=== PATIENT | female | born 1955 | race Caucasian/White ===

== ENCOUNTER 2022-03-24 14:20 | Emergency (ER) | payer OTHER ==
[~2022-03-24] VITALS: Ht 165.1 cm; Wt 93.2 kg
[~2022-03-24 14:20] MED LIST: ACET-8386 PO; DILT120C95 PO; FURO-572 PO; LEVO500T6 PO; METO25TA PO; PANT40EC PO; RIVA20TA PO; ROB PO
[2022-03-24 14:35] VITALS: BP 147/67
[2022-03-24] MEDS ORDERED: CLIN300C2 PO (15:33)
[2022-03-24] MEDS ORDERED: ACET-8386 PO (15:35)
--- NOTE | 2022-03-24 15:43 | NUR ---
LEFT WITHOUT DISCHARGE PAPERS, MADE AWARE
== END 2022-03-24 15:43 | disposition home or self-care (01) ==
LOC: MED 14:20
DX: K11.23 Chronic sialoadenitis (principal); I10 Essential (primary) hypertension; I48.91 Unspecified atrial fibrillation; J44.9 Chronic obstructive pulmonary disease, unspecified; Z88.5 Allergy status to narcotic agent; Z79.899 Other long term (current) drug therapy
CPT/HCPCS: 99283

== ENCOUNTER 2023-06-06 10:06 | Inpatient (IN) | payer OTHER ==
[~2023-06-06] VITALS: Ht 162.6 cm; Wt 123.4 kg
[~2023-06-06 10:06] MED LIST changes: -ACET-8386 PO; +ACET-8905 PO; +CLIN300C2 PO
[2023-06-06 10:16] VITALS: BP 117/99; PULSE 132; RESP 28; TEMP 98; O2SAT 98
[2023-06-06] MEDS ORDERED: ALBUTEROL SULFATE/IPRATROPIU 3 ML SOL IH ONE ×2 (10:20→11:25)
[2023-06-06] MEDS ORDERED: DILTIAZEM 25 MG/5 ML VIAL IVP ONE ×2 (10:20→11:30)
[2023-06-06 10:22] VITALS: PULSE 152; RESP 18; O2SAT 98
[2023-06-06 10:47] LABS: BASOPHILS % (AUTO) 0.4 % (0.0-2.0); EOSINOPHILS # (AUTO) 0.1 K/uL (0-0.4); EOSINOPHILS % (AUTO) 1.2 % (0.0-4.0); HEMATOCRIT 39.7 % (36-48); HEMOGLOBIN 13.3 g/dL (12.0-16.0); LYMPHOCYTES # (AUTO) 1.6 K/uL (2.5-16.5); MEAN CORPUSCULAR HEMOGLOBIN 29 pg (27-31); MEAN CORPUSCULAR HGB CONC 34 g/dL (33-37); MEAN CORPUSCULAR VOLUME 86.4 fL (80-94); MONOCYTES # (AUTO) 0.8 K/uL (0.8-1.0); NEUTROPHILS # (AUTO) 6.8 K/uL (1.8-7.7); NEUTROPHILS % (AUTO) 72.4 % (42.2-75.2); PLATELET COUNT (AUTO) 193 K/uL (140-450); RED BLOOD CELL COUNT(AUTO) 4.59 MIL/uL (4.20-5.40); RED CELL DISTRIBUTION WIDTH 13.7 % (11.6-13.7); WHITE BLOOD COUNT (AUTO) 9.3 K/uL (4.8-10.8)
[2023-06-06 11:01] LABS: ALBUMIN 3.4 g/dL (3.4-5.0); ANION GAP 13.3 (8-16); CALCIUM 8.9 mg/dL (8.5-10.1); CARBON DIOXIDE 28.4 mmol/L (21-32); POTASSIUM 3.7 mmol/L (3.5-5.1); TOTAL BILIRUBIN 0.6 mg/dL (0.0-1.0); TOTAL PROTEIN, SERUM 6.7 g/dL (6.4-8.2)
[2023-06-06] MEDS ORDERED: AZITHROMYCIN 1,000 MG in DEXTROSE 5% 500 ML IV ONE (11:25)
[2023-06-06] MEDS ORDERED: methylPREDNISolone SS 125 MG/2 ML VIAL IVP ONE (11:25)
[2023-06-06] MEDS ORDERED: cefTRIAXone 1,000 MG VIAL ONE (11:32)
[2023-06-06 11:34] LABS: MAGNESIUM 1.9 mg/dL (1.8-2.4); THYROID STIMULATING HORMONE 0.82 uIU/mL (0.34-3.74)
[2023-06-06 11:37] VITALS: PULSE 104; RESP 13; O2SAT 96
[2023-06-06] MEDS ORDERED: RIVA20TA PO (13:37)
[2023-06-06] MEDS ORDERED: FURO-570 PO (13:37)
[2023-06-06] MEDS ORDERED: DILT-135 (13:37)
[2023-06-06] MEDS ORDERED: CARV3.12 PO (13:37)
[2023-06-06] MEDS ORDERED: ATOR20TA PO (13:37)
[2023-06-06] MEDS ORDERED: LISI40TA12 PO (13:37)
[2023-06-06] MEDS ORDERED: PANT40EC56 PO (13:37)
[2023-06-06] MEDS ORDERED: POTASSIUM CHLORIDE 10 MEQ TABER PO PRN (14:45)
[2023-06-06] MEDS ORDERED: DOCUSATE SODIUM 100 MG GELCAP PO PRN (14:45)
[2023-06-06] MEDS ORDERED: ONDANSETRON 4 MG/2 ML VIAL IM/IVP PRN (14:45)
[2023-06-06] MEDS ORDERED: guaiFENesin DM 200/20 MG-10 ML 10 ML UDC PO PRN (14:45)
[2023-06-06] MEDS ORDERED: ALBUTEROL SULFATE/IPRATROPIU 3 ML SOL IH PRN (14:50)
[2023-06-06] MEDS ORDERED: DIGOXIN 0.25 MG/ML AMP IV SCH ×2 (16:17→22:00)
[2023-06-06 16:41] LABS: INR 0.96 (0.8-1.2); PROTHROMBIN TIME 10.1 secs (10.8-13.4)
[2023-06-06 16:42] LABS: PARTIAL THROMBOPLASTIN TIME 32.3 secs (22-35.6)
[2023-06-06 16:49] LABS: CHOL/HDL RATIO 2.2 (1-4.5); FREE T4 (FREE THYROXINE) 1.1 ng/dL (0.76-1.46); PHOSPHORUS 3.5 mg/dL (2.5-4.9)
[2023-06-06 17:03] VITALS: RESP 22; O2SAT 98
[2023-06-06] MEDS: FUROSEMIDE 40 MG/4 ML VIAL IVP SCH (17:32)
[2023-06-06 18:52] VITALS: PULSE 139; RESP 18; O2SAT 93
[2023-06-06] MEDS: ALBUTEROL SULFATE/IPRATROPIU 3 ML SOL IH SCH (18:52)
[2023-06-06 20:00] VITALS: BP 136/78; PULSE 137; RESP 18; TEMP 97.1; O2SAT 98
[2023-06-06] MEDS: DILTIAZEM 60 MG TAB PO SCH (20:13)
[2023-06-06] MEDS: ACETAMINOPHEN 325 MG TAB PO PRN (20:14)
[2023-06-06] MEDS: RIVAROXABAN 10 MG TAB PO SCH (20:19)
[2023-06-06] MEDS ORDERED: carvediloL 3.125 MG TAB PO SCH (21:00)
[2023-06-06] MEDS ORDERED: DILTIAZEM 120 MG CAPER PO SCH (21:00)
[2023-06-06] MEDS: HYDROcodone/APAP 7.5/325 MG 1 TAB PO PRN (21:19)
[2023-06-06] MEDS: ZOLPIDEM 5 MG TAB PO PRN (23:46)
[2023-06-07] VITALS (12 sets, daily range): BP systolic 119–140; BP diastolic 62–80; PULSE 74–133; RESP 16–22; TEMP 96.6–98.2; O2SAT 90–99
[2023-06-07] MEDS ORDERED: DIGOXIN 0.25 MG/ML AMP IV SCH (04:00)
[2023-06-07] MEDS: DILTIAZEM 60 MG TAB PO SCH ×3 (04:21→20:27)
[2023-06-07 06:50] LABS: ANION GAP 12.5 (8-16); CALCIUM 9.5 mg/dL (8.5-10.1); CARBON DIOXIDE 29.3 mmol/L (21-32); POTASSIUM 3.8 mmol/L (3.5-5.1)
[2023-06-07 06:52] LABS: BASOPHILS % (AUTO) 0.1 % (0.0-2.0); HEMATOCRIT 42.8 % (36-48); HEMOGLOBIN 13.9 g/dL (12.0-16.0); LYMPHOCYTES # (AUTO) 1.4 K/uL (2.5-16.5); LYMPHOCYTES % (AUTO) 8.8 % (20.5-51.1); MEAN CORPUSCULAR HEMOGLOBIN 28 pg (27-31); MEAN CORPUSCULAR HGB CONC 33 g/dL (33-37); MEAN CORPUSCULAR VOLUME 87.3 fL (80-94); MONOCYTES # (AUTO) 1.1 K/uL (0.8-1.0); NEUTROPHILS # (AUTO) 13.1 K/uL (1.8-7.7); NEUTROPHILS % (AUTO) 84.1 % (42.2-75.2); PLATELET COUNT (AUTO) 211 K/uL (140-450); RED CELL DISTRIBUTION WIDTH 13.9 % (11.6-13.7); WHITE BLOOD COUNT (AUTO) 15.5 K/uL (4.8-10.8)
[2023-06-07] MEDS: ALBUTEROL SULFATE/IPRATROPIU 3 ML SOL IH SCH ×3 (07:32→19:30)
[2023-06-07] MEDS ORDERED: lisinopriL 20 MG TAB PO SCH (09:00)
[2023-06-07] MEDS: PANTOPRAZOLE 40 MG TABEC PO SCH (10:21)
[2023-06-07] MEDS: FUROSEMIDE 40 MG/4 ML VIAL IVP SCH ×2 (10:21→18:51)
[2023-06-07] MEDS: ATORVASTATIN 20 MG TAB PO SCH (10:21)
[2023-06-07] MEDS: HYDROcodone/APAP 7.5/325 MG 1 TAB PO PRN ×2 (12:04→21:31)
[2023-06-07] MEDS: ACETAMINOPHEN 325 MG TAB PO PRN (19:48)
[2023-06-07] MEDS: RIVAROXABAN 10 MG TAB PO SCH (20:29)
[2023-06-08] VITALS (9 sets, daily range): BP systolic 95–147; BP diastolic 55–86; PULSE 64–112; RESP 16–20; TEMP 97–98.6; O2SAT 90–98
[2023-06-08] MEDS: DILTIAZEM 60 MG TAB PO SCH ×2 (04:47→13:20)
[2023-06-08 06:36] LABS: BASOPHILS # (AUTO) 0.1 K/uL (0.00-0.22); BASOPHILS % (AUTO) 0.4 % (0.0-2.0); EOSINOPHILS # (AUTO) 0.2 K/uL (0-0.4); EOSINOPHILS % (AUTO) 1.3 % (0.0-4.0); HEMATOCRIT 41.8 % (36-48); HEMOGLOBIN 13.9 g/dL (12.0-16.0); LYMPHOCYTES # (AUTO) 2.9 K/uL (2.5-16.5); LYMPHOCYTES % (AUTO) 23.3 % (20.5-51.1); MEAN CORPUSCULAR HEMOGLOBIN 29 pg (27-31); MEAN CORPUSCULAR HGB CONC 33 g/dL (33-37); MEAN CORPUSCULAR VOLUME 87.4 fL (80-94); MONOCYTES # (AUTO) 1.1 K/uL (0.8-1.0); MONOCYTES % (AUTO) 8.6 % (1.7-9.3); NEUTROPHILS # (AUTO) 8.3 K/uL (1.8-7.7); NEUTROPHILS % (AUTO) 66.4 % (42.2-75.2); PLATELET COUNT (AUTO) 208 K/uL (140-450); RED BLOOD CELL COUNT(AUTO) 4.79 MIL/uL (4.20-5.40); RED CELL DISTRIBUTION WIDTH 13.8 % (11.6-13.7); WHITE BLOOD COUNT (AUTO) 12.5 K/uL (4.8-10.8)
[2023-06-08 06:38] LABS: CALCIUM 8.9 mg/dL (8.5-10.1); CARBON DIOXIDE 29.9 mmol/L (21-32); CREATININE 1.1 mg/dL (0.6-1.3); POTASSIUM 3.9 mmol/L (3.5-5.1)
[2023-06-08] MEDS: ALBUTEROL SULFATE/IPRATROPIU 3 ML SOL IH SCH ×3 (07:56→19:22)
[2023-06-08] MEDS: FUROSEMIDE 40 MG/4 ML VIAL IVP SCH ×2 (08:44→17:43)
[2023-06-08] MEDS: ATORVASTATIN 20 MG TAB PO SCH (08:47)
[2023-06-08] MEDS: PANTOPRAZOLE 40 MG TABEC PO SCH (08:47)
[2023-06-08 09:06] LABS: T4 (THYROXINE) 7.6 ug/dL (4.5-12.0)
[2023-06-08] MEDS: ACETAMINOPHEN 325 MG TAB PO PRN ×2 (14:03→19:09)
[2023-06-08] MEDS: HYDROcodone/APAP 7.5/325 MG 1 TAB PO PRN (20:57)
[2023-06-08] MEDS ORDERED: METOPROLOL 25 MG TAB PO SCH (21:00)
[2023-06-08] MEDS: DILTIAZEM 120 MG CAPER PO SCH (21:10)
[2023-06-08] MEDS: RIVAROXABAN 10 MG TAB PO SCH (21:14)
[2023-06-08] MEDS: ZOLPIDEM 5 MG TAB PO PRN (23:33)
[2023-06-09] VITALS (8 sets, daily range): BP systolic 129–157; BP diastolic 75–88; PULSE 71–117; RESP 18–19; TEMP 97.3–98; O2SAT 92–100
[2023-06-09 06:47] LABS: BASOPHILS % (AUTO) 0.4 % (0.0-2.0); EOSINOPHILS # (AUTO) 0.3 K/uL (0-0.4); EOSINOPHILS % (AUTO) 2.4 % (0.0-4.0); HEMATOCRIT 43.4 % (36-48); HEMOGLOBIN 14.2 g/dL (12.0-16.0); LYMPHOCYTES # (AUTO) 2.1 K/uL (2.5-16.5); MEAN CORPUSCULAR HEMOGLOBIN 29 pg (27-31); MEAN CORPUSCULAR HGB CONC 33 g/dL (33-37); MEAN CORPUSCULAR VOLUME 87.8 fL (80-94); MONOCYTES # (AUTO) 1.3 K/uL (0.8-1.0); MONOCYTES % (AUTO) 11.5 % (1.7-9.3); NEUTROPHILS # (AUTO) 7.4 K/uL (1.8-7.7); NEUTROPHILS % (AUTO) 66.7 % (42.2-75.2); PLATELET COUNT (AUTO) 202 K/uL (140-450); RED BLOOD CELL COUNT(AUTO) 4.94 MIL/uL (4.20-5.40); RED CELL DISTRIBUTION WIDTH 13.9 % (11.6-13.7); WHITE BLOOD COUNT (AUTO) 11.2 K/uL (4.8-10.8)
[2023-06-09 06:57] LABS: CALCIUM 8.9 mg/dL (8.5-10.1); CARBON DIOXIDE 29.6 mmol/L (21-32); CREATININE 1.1 mg/dL (0.6-1.3); POTASSIUM 3.6 mmol/L (3.5-5.1)
[2023-06-09] MEDS: ALBUTEROL SULFATE/IPRATROPIU 3 ML SOL IH SCH ×2 (07:39→12:44)
[2023-06-09] MEDS: PANTOPRAZOLE 40 MG TABEC PO SCH (08:34)
[2023-06-09] MEDS: DILTIAZEM 120 MG CAPER PO SCH (08:34)
[2023-06-09] MEDS: ATORVASTATIN 20 MG TAB PO SCH (08:34)
[2023-06-09] MEDS ORDERED: DILTIAZEM 120 MG CAPER PO SCH (09:00)
[2023-06-09] MEDS ORDERED: FUROSEMIDE 40 MG TAB PO SCH (09:00)
[2023-06-09] MEDS ORDERED: DIGOXIN 0.25 MG TAB PO SCH (09:00)
[2023-06-09] MEDS ORDERED: DIGO0.122 PO (11:22)
[2023-06-09] MEDS: ACETAMINOPHEN 325 MG TAB PO PRN (15:43)
[2023-06-09] MEDS ORDERED: ALBU3SOL83 IH (16:15)
[2023-06-10 19:56] LABS: HEMOGLOBIN A1C 6.1 % (4.8-5.6)
== END 2023-06-09 18:20 | disposition home or self-care (01) | DRG 177 ==
LOC: MED 10:06 → MTU 14:33
PROVIDERS: ADMIT Family Medicine; ATTEND Family Medicine
DX: J69.0 Pneumonitis due to inhalation of food and vomit (principal); I50.43 Acute on chronic combined systolic (congestive) and diastolic (congestive) heart failure; J96.00 Acute respiratory failure, unspecified whether with hypoxia or hypercapnia; I48.20 Chronic atrial fibrillation, unspecified; J44.1 Chronic obstructive pulmonary disease with (acute) exacerbation; Z68.42 Body mass index [BMI] 45.0-49.9, adult; R65.10 Systemic inflammatory response syndrome (SIRS) of non-infectious origin without acute organ dysfunction; I11.0 Hypertensive heart disease with heart failure; Z20.822 Contact with and (suspected) exposure to COVID-19; E78.5 Hyperlipidemia, unspecified; K21.9 Gastro-esophageal reflux disease without esophagitis; E66.01 Morbid (severe) obesity due to excess calories; Z88.5 Allergy status to narcotic agent; Z87.891 Personal history of nicotine dependence
CPT/HCPCS: 36415; 71045; 80048; 80053; 82150; 83036; 83690; 83735; 83880; 84100; 84436; 84439; 84443; 84479; 84484; 85025; 85610; 85730; 87081; 93005; 94640; 96365; 96368; 96375; 97116; 97163-GP; 99291; J0456; J0696; J1160; J1940; J2930; J3490; J7060; Q0092